=== PATIENT | male | born 1955 | race Caucasian/White ===

== ENCOUNTER 2023-09-28 20:31 | Inpatient (IN) | payer MEDICARE, OTHER ==
[~2023-09-28] VITALS: Ht 167.6 cm; Wt 81.6 kg
[2023-09-28] MEDS ORDERED: NIFE30TA91 PO (20:47)
[2023-09-28] MEDS ORDERED: ARIP5TAB10 PO (20:47)
[2023-09-28] MEDS ORDERED: IBUP-1953 PO (20:47)
[2023-09-28] MEDS ORDERED: DOCU100C36 PO (20:47)
[2023-09-28] MEDS ORDERED: FAMO20TA8 PO (20:47)
[2023-09-28 21:07] LABS: BASOPHILS % (AUTO) 0.4 % (0.0-2.0); EOSINOPHILS # (AUTO) 0.3 K/uL (0.0-0.7); EOSINOPHILS % (AUTO) 3.3 % (0.0-7.0); HEMATOCRIT 40.5 % (36.7-47.1); HEMOGLOBIN 13.7 g/dL (12.5-16.3); LYMPHOCYTES # (AUTO) 1.7 K/uL (0.8-4.8); LYMPHOCYTES % (AUTO) 20.1 % (20.5-51.5); MEAN CORPUSCULAR HEMOGLOBIN 32.6 uug (23.8-33.4); MEAN CORPUSCULAR HGB CONC 34 g/dL (32.5-36.3); MEAN CORPUSCULAR VOLUME 96.5 fL (73.0-96.2); MONOCYTES # (AUTO) 0.6 K/uL (0.1-1.30); MONOCYTES % (AUTO) 7.3 % (0.0-11.0); NEUTROPHILS # (AUTO) 5.7 K/uL (1.8-8.9); NEUTROPHILS % (AUTO) 68.9 % (38.5-71.5); PLATELET COUNT (AUTO) 363 K/uL (152-348); RED CELL DISTRIBUTION WIDTH 13.4 % (12.1-16.2); WHITE BLOOD COUNT (AUTO) 8.2 K/uL (3.6-10.2)
[2023-09-28 21:31] LABS: *BILIRUBIN,URIN NEGATIVE (NEGATIVE); *BLOOD, URINE NEGATIVE (NEGATIVE); *CLARITY,URINE CLEAR (CLEAR); *COLOR,URINE YELLOW (YELLOW); *KETONES,URINE NEGATIVE (NEGATIVE); *PROTEIN,URINE NEGATIVE (NEGATIVE); *UROBILINOGEN,URINE 0.2 E.U./dl (NORMAL); LEUKOCYTE ESTERASE ,URINE NEGATIVE (NEGATIVE); NITRITE, URINE NEGATIVE (NEGATIVE); UGLUCOSE NEGATIVE (NEGATIVE)
[2023-09-28 21:40] LABS: DIFFERENTIAL COMMENT 1
[2023-09-28 21:46] LABS: THYROID STIMULATING HORMONE 1.963 mIU/mL (0.358-3.740)
[2023-09-28 21:48] LABS: CALCIUM 9.2 mg/dL (8.5-10.1); CARBON DIOXIDE 30 mmol/L (21-32); CHLORIDE 98 mmol/L (98-107); CREATININE 0.8 mg/dL (0.6-1.3); GLUCOSE 100 mg/dL (74-106); POTASSIUM 3.9 mmol/L (3.5-5.1); SODIUM SERUM 135 mmol/L (136-145); UREA NITROGEN, BLOOD 14 mg/dL (7-18)
[2023-09-28 21:52] LABS: ETHANOL < 3 MG/DL (0-10)
[2023-09-28 21:53] LABS: ACETAMINOPHEN < 2.0 ug/mL (10-30); ALANINE AMINOTRANSFERASE 27 U/L (16-63); ALBUMIN 3.7 g/dL (3.4-5.0); ALKALINE PHOSPHATASE 73 U/L (50-136); ASPARTATE AMINOTRANSFERASE 19 U/L (15-37); BILIRUBIN,DIRECT 0.1 mg/dL (0.0-0.2); BILIRUBIN,TOTAL 0.2 mg/dL (0.2-1.0); TOTAL PROTEIN, SERUM 7.9 g/dL (6.4-8.2)
[2023-09-28 21:54] LABS: *AMPHETAMINE, URINE NEGATIVE (NEGATIVE); *BARBITURATE, URINE NEGATIVE (NEGATIVE); *BENZODIAZEPINE, URINE NEGATIVE (NEGATIVE); *CANNABINOID, URINE NEGATIVE (NEGATIVE); *COCCAINE, URINE NEGATIVE (NEGATIVE); *OPIATE, URINE NEGATIVE (NEGATIVE); *PHENCYCLIDINE SCREEN,URINE NEGATIVE (NEGATIVE)
[2023-09-28 21:56] LABS: FENTANYL, URINE NEGATIVE (NEGATIVE)
[2023-09-29] MEDS ORDERED: MAG HYDROX/AL HYDROX/SIMETH 30 ML LIQUID UDC PO PRN
[2023-09-29] MEDS ORDERED: MAGNESIUM HYDROXIDE 30 ML LIQUID UDC PO PRN
[2023-09-29] MEDS ORDERED: BLOOD SUGAR DIAGNOSTIC 1 EACH STRIP VI ONE
[2023-09-29] MEDS ORDERED: DOCUSATE SODIUM 100 MG CAPSULE PO PRN (00:30)
[2023-09-29 00:32] VITALS: BP 163/96; TEMP 98.2; O2SAT 96
[2023-09-29] MEDS: LORAZEPAM 0.5 MG TABLET PO PRN (01:02)
[2023-09-29] MEDS: ZOLPIDEM 5 MG TABLET PO PRN (01:03)
[2023-09-29 08:11] VITALS: BP 141/95; TEMP 98.2; O2SAT 100
[2023-09-29] MEDS: NIFEdipine XL 30 MG TABSR PO SCH (09:15)
[2023-09-29] MEDS: FAMOTIDINE 20 MG TABLET PO SCH ×2 (09:15→16:13)
[2023-09-29 09:38] LABS: ALBUMIN 3.5 g/dL (3.4-5.0); CALCIUM 8.9 mg/dL (8.5-10.1); CREATININE 0.9 mg/dL (0.6-1.3); POTASSIUM 3.9 mmol/L (3.5-5.1); TOTAL PROTEIN, SERUM 7.5 g/dL (6.4-8.2)
[2023-09-29 09:46] LABS: BILIRUBIN,TOTAL 0.1 mg/dL (0.2-1.0)
[2023-09-29] MEDS: risperiDONE 1 MG TABLET PO SCH ×2 (10:41→16:13)
[2023-09-29 15:20] VITALS: BP 137/76; TEMP 98.2; O2SAT 94
[2023-09-29 20:02] VITALS: BP 108/62; TEMP 98.1; O2SAT 95
[2023-09-29] MEDS: ATORVASTATIN 10 MG TABLET PO SCH (20:43)
[2023-09-29] MEDS: DIVALPROEX 250 MG TABLET.DR PO SCH (20:43)
[2023-09-29] MEDS: ACETAMINOPHEN 325 MG TABLET PO PRN (22:11)
[2023-09-30] MEDS: ZOLPIDEM 5 MG TABLET PO PRN (02:32)
[2023-09-30] MEDS: ACETAMINOPHEN 325 MG TABLET PO PRN (05:52)
[2023-09-30] MEDS: FAMOTIDINE 20 MG TABLET PO SCH ×2 (05:52→16:16)
[2023-09-30 07:57] VITALS: BP 125/70; TEMP 98; O2SAT 99
[2023-09-30] MEDS: NIFEdipine XL 30 MG TABSR PO SCH (08:59)
[2023-09-30] MEDS: risperiDONE 1 MG TABLET PO SCH ×2 (09:00→16:16)
[2023-09-30] MEDS: DIVALPROEX 250 MG TABLET.DR PO SCH ×2 (09:02→20:45)
[2023-09-30 15:27] VITALS: BP 126/69; TEMP 98.2; O2SAT 99
[2023-09-30 19:55] VITALS: BP 108/62; TEMP 98.1; O2SAT 99
[2023-09-30] MEDS: ATORVASTATIN 10 MG TABLET PO SCH (20:45)
[2023-10-01] MEDS: LORAZEPAM 0.5 MG TABLET PO PRN ×3 (00:10→20:14)
[2023-10-01] MEDS: ACETAMINOPHEN 325 MG TABLET PO PRN ×3 (00:10→20:14)
[2023-10-01] MEDS: FAMOTIDINE 20 MG TABLET PO SCH ×2 (06:05→16:09)
[2023-10-01 08:12] VITALS: BP 113/64; TEMP 97.8; O2SAT 99
[2023-10-01] MEDS: risperiDONE 1 MG TABLET PO SCH ×2 (08:34→16:09)
[2023-10-01] MEDS: DIVALPROEX 250 MG TABLET.DR PO SCH ×2 (08:34→20:14)
[2023-10-01] MEDS: NIFEdipine XL 30 MG TABSR PO SCH (08:35)
[2023-10-01 16:04] VITALS: BP 118/87; TEMP 98; O2SAT 98
[2023-10-01 20:00] VITALS: BP 140/69; TEMP 97.9; O2SAT 99
[2023-10-01] MEDS: ATORVASTATIN 10 MG TABLET PO SCH (20:14)
[2023-10-02] MEDS: FAMOTIDINE 20 MG TABLET PO SCH ×2 (07:21→16:33)
[2023-10-02 08:03] VITALS: BP 134/91; TEMP 98.1; O2SAT 98
[2023-10-02] MEDS: DIVALPROEX 250 MG TABLET.DR PO SCH ×2 (08:10→21:03)
[2023-10-02] MEDS: risperiDONE 1 MG TABLET PO SCH ×2 (08:10→16:33)
[2023-10-02] MEDS: NIFEdipine XL 30 MG TABSR PO SCH (08:11)
[2023-10-02] MEDS: LORAZEPAM 0.5 MG TABLET PO PRN (11:40)
[2023-10-02] MEDS: ACETAMINOPHEN 325 MG TABLET PO PRN ×2 (11:40→21:03)
[2023-10-02 16:11] VITALS: BP 141/84; TEMP 98; O2SAT 98
[2023-10-02 19:59] VITALS: BP 136/80; TEMP 98.1; O2SAT 96
[2023-10-02] MEDS: ATORVASTATIN 10 MG TABLET PO SCH (21:02)
[2023-10-02] MEDS: ZOLPIDEM 5 MG TABLET PO PRN (22:26)
[2023-10-03] MEDS: FAMOTIDINE 20 MG TABLET PO SCH ×2 (06:55→16:28)
[2023-10-03 07:50] VITALS: BP 136/85; TEMP 98.1; O2SAT 98
[2023-10-03] MEDS: risperiDONE 2 MG TABLET PO SCH ×2 (08:25→16:28)
[2023-10-03] MEDS: DIVALPROEX 250 MG TABLET.DR PO SCH ×2 (08:25→20:11)
[2023-10-03] MEDS: NIFEdipine XL 30 MG TABSR PO SCH (08:38)
[2023-10-03] MEDS ORDERED: risperiDONE 1 MG TABLET PO SCH (09:00)
[2023-10-03 16:06] VITALS: BP 135/75; TEMP 98; O2SAT 97
[2023-10-03 19:57] VITALS: BP 146/72; TEMP 97.6; O2SAT 98
[2023-10-03] MEDS: ATORVASTATIN 10 MG TABLET PO SCH (20:11)
[2023-10-04] MEDS: FAMOTIDINE 20 MG TABLET PO SCH ×2 (06:40→16:42)
[2023-10-04] MEDS: ACETAMINOPHEN 325 MG TABLET PO PRN (07:45)
[2023-10-04] MEDS: risperiDONE 2 MG TABLET PO SCH ×2 (08:40→16:42)
[2023-10-04] MEDS: DIVALPROEX 250 MG TABLET.DR PO SCH ×2 (08:40→20:32)
[2023-10-04] MEDS: NIFEdipine XL 30 MG TABSR PO SCH (08:40)
[2023-10-04 08:47] VITALS: BP 152/86; TEMP 98; O2SAT 100
[2023-10-04 08:49] LABS: CREATININE 0.8 mg/dL (0.6-1.3); MAGNESIUM 2.4 mg/dL (1.8-2.4); PHOSPHOROUS 3.1 mg/dL (2.5-4.9); POTASSIUM 4.2 mmol/L (3.5-5.1)
[2023-10-04 09:05] LABS: CALCIUM 9.1 mg/dL (8.5-10.1)
[2023-10-04 15:32] VITALS: BP 118/69; TEMP 98; O2SAT 100
[2023-10-04 19:52] VITALS: BP 132/87; TEMP 98.2; O2SAT 100
[2023-10-04] MEDS: ATORVASTATIN 10 MG TABLET PO SCH (20:32)
[2023-10-05] MEDS: FAMOTIDINE 20 MG TABLET PO SCH ×2 (06:14→16:39)
[2023-10-05 08:04] VITALS: BP 132/86; TEMP 98; O2SAT 99
[2023-10-05] MEDS: DIVALPROEX 250 MG TABLET.DR PO SCH ×3 (08:23→16:39)
[2023-10-05] MEDS: risperiDONE 2 MG TABLET PO SCH ×2 (08:23→17:09)
[2023-10-05] MEDS: NIFEdipine XL 30 MG TABSR PO SCH (08:24)
[2023-10-05 15:14] VITALS: BP 149/93; TEMP 98; O2SAT 98
[2023-10-05 20:00] VITALS: BP 107/67; TEMP 97.7; O2SAT 97
[2023-10-05] MEDS: ZOLPIDEM 5 MG TABLET PO PRN (20:11)
[2023-10-05] MEDS: ATORVASTATIN 10 MG TABLET PO SCH (20:11)
[2023-10-06] MEDS: ACETAMINOPHEN 325 MG TABLET PO PRN (06:31)
[2023-10-06] MEDS: FAMOTIDINE 20 MG TABLET PO SCH ×2 (06:32→16:05)
[2023-10-06 07:30] VITALS: BP 117/64; TEMP 98.2; O2SAT 98
[2023-10-06] MEDS: DIVALPROEX 250 MG TABLET.DR PO SCH ×3 (08:48→16:05)
[2023-10-06] MEDS: NIFEdipine XL 30 MG TABSR PO SCH (08:48)
[2023-10-06] MEDS: risperiDONE 2 MG TABLET PO SCH ×2 (08:48→16:05)
[2023-10-06 15:00] VITALS: BP 135/88; TEMP 97.8; O2SAT 98
[2023-10-06 20:00] VITALS: BP 96/57; TEMP 98; O2SAT 95
[2023-10-06] MEDS: ATORVASTATIN 10 MG TABLET PO SCH (20:06)
[2023-10-06] MEDS: ZOLPIDEM 5 MG TABLET PO PRN (20:07)
[2023-10-07] MEDS ORDERED: SODIUM POLYSTYRENE SULFONATE 15 G/60 ML LIQUID UDC ONE ×2 (00:38→00:39)
[2023-10-07] MEDS: FAMOTIDINE 20 MG TABLET PO SCH ×2 (06:35→16:36)
[2023-10-07 08:10] VITALS: BP 109/59; TEMP 98; O2SAT 99
[2023-10-07] MEDS: NIFEdipine XL 30 MG TABSR PO SCH (08:42)
[2023-10-07] MEDS: risperiDONE 2 MG TABLET PO SCH ×2 (08:43→16:35)
[2023-10-07] MEDS: DIVALPROEX 250 MG TABLET.DR PO SCH ×3 (08:45→16:36)
[2023-10-07] MEDS: ACETAMINOPHEN 325 MG TABLET PO PRN (14:30)
[2023-10-07 15:24] VITALS: BP 113/73; TEMP 97.8; O2SAT 97
[2023-10-07 20:00] VITALS: BP 123/84; TEMP 97.6; O2SAT 99
[2023-10-07] MEDS: LORAZEPAM 0.5 MG TABLET PO PRN (20:14)
[2023-10-07] MEDS: ATORVASTATIN 10 MG TABLET PO SCH (20:15)
[2023-10-08] MEDS: FAMOTIDINE 20 MG TABLET PO SCH ×2 (06:26→16:33)
[2023-10-08 08:05] VITALS: BP 121/68; TEMP 98.6; O2SAT 98
[2023-10-08] MEDS: DIVALPROEX 250 MG TABLET.DR PO SCH ×3 (08:46→16:33)
[2023-10-08] MEDS: risperiDONE 2 MG TABLET PO SCH ×2 (08:47→16:32)
[2023-10-08 08:53] LABS: CALCIUM 8.6 mg/dL (8.5-10.1); CREATININE 0.7 mg/dL (0.6-1.3); MAGNESIUM 2.4 mg/dL (1.8-2.4); PHOSPHOROUS 3.2 mg/dL (2.5-4.9); POTASSIUM 4.1 mmol/L (3.5-5.1); URIC ACID 4.7 mg/dL (3.5-7.2)
[2023-10-08] MEDS: NIFEdipine XL 30 MG TABSR PO SCH (08:56)
[2023-10-08 09:03] LABS: THYROID STIMULATING HORMONE 1.476 mIU/mL (0.358-3.740)
[2023-10-08 16:06] VITALS: BP 126/79; TEMP 97.8; O2SAT 98
[2023-10-08 20:34] VITALS: BP 121/69; TEMP 98.2; O2SAT 96
[2023-10-08] MEDS: ATORVASTATIN 10 MG TABLET PO SCH (21:13)
[2023-10-09] MEDS: ZOLPIDEM 5 MG TABLET PO PRN ×2 (02:18→23:01)
[2023-10-09] MEDS: FAMOTIDINE 20 MG TABLET PO SCH ×2 (06:29→17:42)
[2023-10-09 07:52] VITALS: BP 92/58; TEMP 98.2; O2SAT 98
[2023-10-09] MEDS: risperiDONE 2 MG TABLET PO SCH ×2 (09:00→17:41)
[2023-10-09] MEDS: NIFEdipine XL 30 MG TABSR PO SCH (09:00)
[2023-10-09] MEDS: DIVALPROEX 250 MG TABLET.DR PO SCH ×3 (09:00→17:42)
[2023-10-09 15:23] VITALS: BP 127/71; TEMP 98.2; O2SAT 98
[2023-10-09 20:02] VITALS: BP 118/74; TEMP 98.2; O2SAT 96
[2023-10-09] MEDS: ACETAMINOPHEN 325 MG TABLET PO PRN (20:56)
[2023-10-09] MEDS: ATORVASTATIN 10 MG TABLET PO SCH (20:57)
[2023-10-10] MEDS: FAMOTIDINE 20 MG TABLET PO SCH ×2 (06:06→16:30)
[2023-10-10 08:00] VITALS: BP 122/65; TEMP 97.6; O2SAT 97
[2023-10-10] MEDS: risperiDONE 2 MG TABLET PO SCH ×2 (08:34→16:30)
[2023-10-10] MEDS: NIFEdipine XL 30 MG TABSR PO SCH (08:35)
[2023-10-10] MEDS: DIVALPROEX 250 MG TABLET.DR PO SCH ×3 (08:35→16:30)
[2023-10-10 16:00] VITALS: BP 106/62; TEMP 97.2; O2SAT 97
[2023-10-10 19:55] VITALS: BP 112/66; TEMP 97.8; O2SAT 96
[2023-10-10] MEDS: ATORVASTATIN 10 MG TABLET PO SCH (20:16)
[2023-10-11] MEDS: FAMOTIDINE 20 MG TABLET PO SCH (06:31)
[2023-10-11] MEDS: DIVALPROEX 250 MG TABLET.DR PO SCH ×2 (08:48→12:35)
[2023-10-11] MEDS: NIFEdipine XL 30 MG TABSR PO SCH (08:48)
[2023-10-11] MEDS: risperiDONE 2 MG TABLET PO SCH (08:48)
[2023-10-11 10:23] VITALS: BP 117/79; TEMP 97.6; O2SAT 97
== END 2023-10-11 14:15 | DRG 885 ==
LOC: ER 20:35 → GPS 21:50
PROVIDERS: ADMIT Psychiatry & Neurology Psychiatry; ATTEND Internal Medicine
DX: F25.0 Schizoaffective disorder, bipolar type (principal); F03.911 Unspecified dementia, unspecified severity, with agitation; D68.59 Other primary thrombophilia; E87.1 Hypo-osmolality and hyponatremia; F03.94 Unspecified dementia, unspecified severity, with anxiety; E78.5 Hyperlipidemia, unspecified; Z74.09 Other reduced mobility; K21.9 Gastro-esophageal reflux disease without esophagitis; K29.70 Gastritis, unspecified, without bleeding; E66.9 Obesity, unspecified; Z68.28 Body mass index [BMI] 28.0-28.9, adult; I10 Essential (primary) hypertension; Z79.899 Other long term (current) drug therapy; Z91.81 History of falling; D75.89 Other specified diseases of blood and blood-forming organs
CPT/HCPCS: 36415; 80164; 82533; 83735; 84100; 84443; 84550; 85025; G0480; J3490

== ENCOUNTER 2024-09-16 16:20 | Inpatient (IN) | payer MEDICARE, OTHER ==
[~2024-09-16] VITALS: Ht 165.1 cm; Wt 78.0 kg
[~2024-09-16 16:20] MED LIST: ARIP5TAB10 PO; DOCU100C36 PO; FAMO20TA8 PO; IBUP-1953 PO; NIFE30TA91 PO
[2024-09-16] MEDS ORDERED: BENZ0.5T43 PO (16:52)
[2024-09-16] MEDS ORDERED: RISP2TAB5 PO (16:52)
[2024-09-16] MEDS ORDERED: DIVA500T54 PO (16:52)
[2024-09-16] MEDS ORDERED: MAGN400O6 PO (16:52)
[2024-09-16] MEDS ORDERED: ACET-2154 PO (16:52)
[2024-09-16 17:09] LABS: BASOPHILS # (AUTO) 0.1 K/UL (0.0-0.2); BASOPHILS % (AUTO) 0.6 % (0.0-2.0); EOSINOPHILS # (AUTO) 0.3 K/uL (0.0-0.7); EOSINOPHILS % (AUTO) 3.4 % (0.0-7.0); HEMATOCRIT 38.3 % (36.7-47.1); LYMPHOCYTES # (AUTO) 2.1 K/uL (0.8-4.8); LYMPHOCYTES % (AUTO) 23.8 % (20.5-51.5); MEAN CORPUSCULAR HEMOGLOBIN 32.5 uug (23.8-33.4); MEAN CORPUSCULAR HGB CONC 34 g/dL (32.5-36.3); MEAN CORPUSCULAR VOLUME 95.8 fL (73.0-96.2); MONOCYTES # (AUTO) 0.8 K/uL (0.1-1.30); MONOCYTES % (AUTO) 9.2 % (0.0-11.0); NEUTROPHILS # (AUTO) 5.7 K/uL (1.8-8.9); PLATELET COUNT (AUTO) 260 K/uL (152-348); RED CELL DISTRIBUTION WIDTH 14.2 % (12.1-16.2)
[2024-09-16 17:15] LABS: CALCIUM 8.8 mg/dL (8.5-10.1); CARBON DIOXIDE 27 mmol/L (21-32); CHLORIDE 96 mmol/L (98-107); GLUCOSE 102 mg/dL (74-106); POTASSIUM 3.4 mmol/L (3.5-5.1); SODIUM SERUM 133 mmol/L (136-145); UREA NITROGEN, BLOOD 9 mg/dL (7-18)
[2024-09-16 17:16] LABS: AMMONIA 29 umol/L (11-32)
[2024-09-16 17:23] LABS: ALANINE AMINOTRANSFERASE 17 U/L (16-63); ALBUMIN 3.3 g/dL (3.4-5.0); ALKALINE PHOSPHATASE 74 U/L (50-136); ASPARTATE AMINOTRANSFERASE 9 U/L (15-37); BILIRUBIN,DIRECT 0.1 mg/dL (0.0-0.2); BILIRUBIN,TOTAL 0.3 mg/dL (0.2-1.0); TOTAL PROTEIN, SERUM 7.4 g/dL (6.4-8.2)
[2024-09-16] MEDS: POTASSIUM BICARBONATE/CIT AC 25 MEQ TABLET.EFF PO ONE (17:34)
[2024-09-16] MEDS ORDERED: POTASSIUM BICARBONATE/CIT AC 25 MEQ TABLET.EFF ONE (17:36)
[2024-09-16 17:54] LABS: MAGNESIUM 2.3 mg/dL (1.8-2.4)
[2024-09-16 17:56] LABS: *BILIRUBIN,URIN NEGATIVE (NEGATIVE); *BLOOD, URINE TRACE (NEGATIVE); *CLARITY,URINE CLEAR (CLEAR); *COLOR,URINE YELLOW (YELLOW); *KETONES,URINE NEGATIVE (NEGATIVE); *PROTEIN,URINE NEGATIVE (NEGATIVE); *UROBILINOGEN,URINE 0.2 E.U./dl (NORMAL); LEUKOCYTE ESTERASE ,URINE NEGATIVE (NEGATIVE); NITRITE, URINE NEGATIVE (NEGATIVE); UGLUCOSE NEGATIVE (NEGATIVE)
[2024-09-16 18:13] LABS: BACTERIA,URINE NONE SEEN /HPF (NONE SEEN); RBC,URINE 0-3 /HPF (0-3); SQUAMOUS EPITHELIAL CELL,UR NONE SEEN /HPF (NONE SEEN); WBC,URINE 0-3 /HPF (0-3)
[2024-09-16] MEDS ORDERED: MAGNESIUM HYDROXIDE 30 ML LIQUID UDC PO PRN (22:15)
[2024-09-16] MEDS ORDERED: MAG HYDROX/AL HYDROX/SIMETH 30 ML LIQUID UDC PO PRN (22:15)
[2024-09-16] MEDS ORDERED: LORAZEPAM 1 MG TABLET PO PRN (22:15)
[2024-09-16] MEDS ORDERED: TEMAZEPAM 7.5 MG CAPSULE PO PRN ×2 (22:15)
[2024-09-16 22:20] VITALS: BP 136/80; TEMP 98.3; O2SAT 91
[2024-09-16] MEDS: BLOOD SUGAR DIAGNOSTIC 1 EACH STRIP VI ONE (23:08)
[2024-09-16] MEDS: ACETAMINOPHEN 325 MG TABLET PO PRN (23:25)
[2024-09-16] MEDS: LORAZEPAM 1 MG TABLET PO PRN (23:25)
[2024-09-16] MEDS ORDERED: IBUPROFEN 400 MG TABLET PO PRN (23:30)
[2024-09-17] MEDS: FAMOTIDINE 20 MG TABLET PO SCH (06:45)
[2024-09-17 07:58] VITALS: BP 107/67; TEMP 98.8; O2SAT 97
[2024-09-17] MEDS: DOCUSATE SODIUM 100 MG CAPSULE PO SCH (08:22)
[2024-09-17] MEDS: NICOTINE 21 MG/24HR PATCH TD SCH (08:23)
[2024-09-17] MEDS: NIFEdipine XL 30 MG TABSR PO SCH (08:23)
[2024-09-17] MEDS ORDERED: Medication Not On Formulary EA (Nifedipine (Nifedipine Er) 30 MG) PO SCH (09:00)
[2024-09-17] MEDS ORDERED: LORAZEPAM 0.5 MG TABLET PO PRN (10:00)
[2024-09-17] MEDS: risperiDONE 1 MG TABLET PO SCH (10:30)
[2024-09-17] MEDS: DIVALPROEX 250 MG TABLET.DR PO SCH (12:10)
[2024-09-17 16:00] VITALS: BP 133/74; TEMP 97.6; O2SAT 95
[2024-09-17 20:00] VITALS: BP 105/69; TEMP 97.9; O2SAT 94
[2024-09-17] MEDS: ATORVASTATIN 10 MG TABLET PO SCH (21:10)
[2024-09-17] MEDS: TEMAZEPAM 7.5 MG CAPSULE PO PRN (21:10)
[2024-09-18 07:49] VITALS: BP 126/86; TEMP 97.8; O2SAT 98
[2024-09-18 15:54] VITALS: BP 111/66; TEMP 98.4; O2SAT 95
[2024-09-18 16:06] VITALS: BP 111/66; TEMP 98.4; O2SAT 95
[2024-09-18 20:09] VITALS: BP 116/71; TEMP 97.9; O2SAT 96
[2024-09-19 07:51] VITALS: BP 139/77; TEMP 97.6; O2SAT 97
[2024-09-19 15:29] VITALS: BP 113/74; TEMP 98.3; O2SAT 97
[2024-09-19 20:24] VITALS: BP 131/74; TEMP 98; O2SAT 96
[2024-09-19] MEDS: risperiDONE 2 MG TABLET PO SCH (21:05)
[2024-09-20] MEDS: risperiDONE 1 MG TABLET PO SCH (09:03)
[2024-09-20 09:20] VITALS: BP 130/76; TEMP 98; O2SAT 100
[2024-09-20 20:30] VITALS: BP 132/76; TEMP 98.1; O2SAT 96
[2024-09-21 07:42] VITALS: BP 124/87; TEMP 97.9; O2SAT 98
[2024-09-21 08:01] LABS: CALCIUM 8.7 mg/dL (8.5-10.1); CREATININE 0.8 mg/dL (0.6-1.3); POTASSIUM 3.7 mmol/L (3.5-5.1)
[2024-09-21 15:50] VITALS: BP 141/91; TEMP 97.8; O2SAT 98
[2024-09-21 20:00] VITALS: BP 126/88; TEMP 98.1; O2SAT 95
[2024-09-22 08:00] VITALS: BP 124/84; TEMP 98.2; O2SAT 97
[2024-09-22 20:00] VITALS: BP 101/69; TEMP 98.2; O2SAT 96
[2024-09-23 07:54] VITALS: BP 139/86; TEMP 97.1; O2SAT 100
[2024-09-23 16:56] VITALS: BP 139/89; TEMP 98.4
[2024-09-23 16:57] VITALS: O2SAT 99
[2024-09-23 20:18] VITALS: BP 126/81; TEMP 98.2; O2SAT 91
[2024-09-24 08:10] VITALS: BP 129/83; TEMP 98.1; O2SAT 97
[2024-09-24 16:04] VITALS: BP 135/83; TEMP 98.5; O2SAT 98
[2024-09-24 20:00] VITALS: BP 129/75; TEMP 98; O2SAT 96
[2024-09-25 07:53] VITALS: BP 110/65; TEMP 98.3; O2SAT 97
[2024-09-25 16:12] VITALS: BP 123/85; TEMP 98.4; O2SAT 99
[2024-09-25 20:00] VITALS: BP 121/65; TEMP 98.4; O2SAT 98
[2024-09-26 08:38] VITALS: BP 145/58; TEMP 98; O2SAT 100
== END 2024-09-26 13:00 | DRG 885 ==
LOC: ER 16:20 → UNDOADMIN 21:36 → GPS 21:36
PROVIDERS: ADMIT Psychiatry & Neurology Psychosomatic Medicine; ATTEND Internal Medicine
DX: F29 Unspecified psychosis not due to a substance or known physiological condition (principal); E87.1 Hypo-osmolality and hyponatremia; F03.93 Unspecified dementia, unspecified severity, with mood disturbance; F03.911 Unspecified dementia, unspecified severity, with agitation; F25.9 Schizoaffective disorder, unspecified; E87.6 Hypokalemia; F32.9 Major depressive disorder, single episode, unspecified; F17.210 Nicotine dependence, cigarettes, uncomplicated; E78.5 Hyperlipidemia, unspecified; M15.9 Polyosteoarthritis, unspecified; K21.9 Gastro-esophageal reflux disease without esophagitis; I10 Essential (primary) hypertension; Z79.899 Other long term (current) drug therapy
CPT/HCPCS: 36415; 70450; 71045; 80164; 83735; 84484; 85025; A4606; A4663; J3490